=== PATIENT | male | born 1975 | race Caucasian/White ===

== ENCOUNTER 2018-01-17 09:03 | Day surgery (SDC) | payer OTHER ==
[2018-01-17] MEDS ORDERED: LIDOCAINE 4% SOLUTION 50 ML BTL (11:16)
[2018-01-17] MEDS ORDERED: MIDAZOLAM 1 MG/ML 2 ML INJ ×3 (12:00)
[2018-01-17] MEDS ORDERED: FENTAnyl 50 MCG/ML VIAL (12:01)
== END 2018-01-17 13:47 | disposition home or self-care (01) ==
LOC: GIL 09:03
DX: K57.30 Diverticulosis of large intestine without perforation or abscess without bleeding (principal); K64.4 Residual hemorrhoidal skin tags; K21.0 Gastro-esophageal reflux disease with esophagitis; K29.70 Gastritis, unspecified, without bleeding; K25.9 Gastric ulcer, unspecified as acute or chronic, without hemorrhage or perforation; K62.5 Hemorrhage of anus and rectum
CPT/HCPCS: 43239; 88305